=== PATIENT | female | born 1955 | race Caucasian/White ===

== ENCOUNTER 2025-06-02 13:48 | Inpatient (IN) | payer OTHER ==
[~2025-06-02] VITALS: Ht 154.9 cm; Wt 54.9 kg
[2025-06-02 13:52] VITALS: O2SAT 96
[2025-06-02 14:32] LABS: BASOPHILS % 0.9 % (0.0-2.0); EOSINOPHILS % 1.2 % (0.0-5.0); HEMATOCRIT. 23.2 % (36.0-48.0); HEMOGLOBIN. 7.6 g/dL (12.0-16.0); LYMPHOCYTES % 14.4 % (20.0-50.0); MEAN PLATELET VOLUME 9.0 fl (7.4-10.4); MONOCYTES % 5.5 % (2.0-8.0); NEUTROPHILS % 78.0 % (40.0-76.0); PLATELET 235 x1000/uL (130-400); RED BLOOD CELL COUNT 2.53 mill/uL (4.2-5.4); RED CELL DISTRIBUTION WIDTH 17.9 % (11.6-14.6)
[2025-06-02] MEDS: DEXTROSE 50% WATER 50ML SYRINGE IV ONE (14:35)
[2025-06-02] MEDS: DEXT 5%/0.45% NACL 1000ML 1,000 ML IV ONE (14:49)
[2025-06-02 14:54] LABS: CREATININE 1.2 mg/dL (0.6-1.0)
[2025-06-02 14:55] LABS: UREA NITROGEN BLOOD 28 mg/dL (9-23)
[2025-06-02 14:56] LABS: ASPARTATE AMINOTRANSFERASE 63 IU/L (<34); BILIRUBIN DIRECT < 0.1 mg/dL (<=3.0)
[2025-06-02 14:57] LABS: BILIRUBIN TOTAL 0.3 mg/dL (0.1-1.0); PROTEIN TOTAL 5.1 g/dL (6.0-8.3)
[2025-06-02 16:00] VITALS: BP 153/58; PULSE 58; RESP 18; TEMP 36.9; O2SAT 100
[2025-06-02] MEDS: INSULIN LISPRO 100 UNITS/ML SUBCUT SCH (18:12)
[2025-06-02] MEDS ORDERED: ACETAMINOPHEN 325MG TABLET PO PRN ×2 (18:15)
[2025-06-02] MEDS ORDERED: ONDANSETRON HCL 4MG/2ML INJ IV PRN (18:15)
[2025-06-02] MEDS ORDERED: IPRATROPIUM/ALBUTEROL 0.5-3(2.5)MG/3ML NEB HHN PRN (18:15)
[2025-06-02] MEDS ORDERED: DEXTROSE 50% WATER 50ML SYRINGE IV PRN (18:15)
[2025-06-02] MEDS ORDERED: DOCUSATE SODIUM 100MG CAPSULE PO PRN (18:15)
[2025-06-02 18:38] VITALS: BP 153/58; PULSE 58; RESP 18; TEMP 36.974
[2025-06-02 20:00] VITALS: BP 149/56; PULSE 56; RESP 19; TEMP 36.4; O2SAT 98
[2025-06-02] MEDS: BLOOD SUGAR DIAGNOSTIC STRIP TEST SCH (21:03)
[2025-06-03 00:08] VITALS: BP 112/68; PULSE 60; RESP 17; TEMP 36.4; O2SAT 97
[2025-06-03 04:40] VITALS: BP 139/58; PULSE 61; RESP 17; TEMP 36.6; O2SAT 98
[2025-06-03 07:06] LABS: BASOPHILS % 0.3 % (0.0-2.0); EOSINOPHILS % 0.8 % (0.0-5.0); HEMATOCRIT. 25.7 % (36.0-48.0); HEMOGLOBIN. 8.6 g/dL (12.0-16.0); LYMPHOCYTES % 7.1 % (20.0-50.0); MEAN PLATELET VOLUME 9.1 fl (7.4-10.4); MONOCYTES % 5.2 % (2.0-8.0); NEUTROPHILS % 86.6 % (40.0-76.0); PLATELET 272 x1000/uL (130-400); RED BLOOD CELL COUNT 2.84 mill/uL (4.2-5.4); RED CELL DISTRIBUTION WIDTH 17.8 % (11.6-14.6)
[2025-06-03 07:15] LABS: CREATININE 1.3 mg/dL (0.6-1.0)
[2025-06-03 07:16] LABS: UREA NITROGEN BLOOD 37.0 mg/dL (9-23)
[2025-06-03 08:00] VITALS: BP 164/72; PULSE 63; RESP 18; TEMP 36.3; O2SAT 99
[2025-06-03] MEDS: SODIUM ZIRCONIUM CYCLOSILICATE 10GM/PACKET PO NR (09:30)
[2025-06-03] MEDS: SODIUM BICARBONATE 8.4% 50MEQ/50ML SYR IV NR (10:09)
[2025-06-03] MEDS: DEXTROSE 50% WATER 50ML SYRINGE IV NR (10:09)
[2025-06-03] MEDS: INSULIN REGULAR (HUMULIN R) 1000UNITS/10ML VIAL IV NR (10:10)
[2025-06-03 12:00] VITALS: BP_SYST 140; BP_DIAS 74; BP_DIAS 86; PULSE 73; PULSE 76; RESP 20; TEMP 36.4; TEMP 36.6; O2SAT 100; O2SAT 99
[2025-06-03 16:00] VITALS: BP 137/74; PULSE 70; RESP 18; TEMP 36.7; O2SAT 97
[2025-06-03] MEDS: ENOXAPARIN 30MG/0.3ML SYR SUBCUT SCH (16:54)
[2025-06-03 22:26] LABS: CLARITY URINE CLEAR (CLEAR); COLOR URINE YELLOW (YELLOW); GLUCOSE URINE TRACE (NEGATIVE); KETONES URINE NEGATIVE (NEGATIVE); LEUKOCYTE ESTERASE URINE TRACE (NEGATIVE); NITRITE URINE POSITIVE (NEGATIVE); OCCULT BLOOD URINE 1+ (NEGATIVE); PH URINE 5.5 (4.5-8.0); PROTEIN URINE 3+ (NEGATIVE); SPECIFIC GRAVITY URINE 1.016 (1.005-1.030); UROBILINOGEN URINE 0.2 E.U./dL (0.2-1.0)
[2025-06-03 22:59] LABS: BACTERIA URINE 2+; SQUAMOUS EPITHELIAL CELL URINE 1+ /lpf (RARE/1+); WBC URINE 0-2 /hpf (0-2)
[2025-06-04] VITALS (7 sets, daily range): BP systolic 160–177; BP diastolic 59–76; PULSE 70–74; RESP 15–20; TEMP 36.6–37.1; O2SAT 95–100
[2025-06-04 06:53] LABS: CREATININE 1.2 mg/dL (0.6-1.0); UREA NITROGEN BLOOD 24.0 mg/dL (9-23)
[2025-06-04] MEDS: AMLODIPINE 10MG TABLET PO SCH (14:56)
[2025-06-04] MEDS: CLONIDINE 0.1MG TABLET PO PRN (14:56)
[2025-06-04 16:50] LABS: BASOPHILS % 1.1 % (0.0-2.0); EOSINOPHILS % 3.6 % (0.0-5.0); HEMATOCRIT. 25.4 % (36.0-48.0); HEMOGLOBIN. 8.4 g/dL (12.0-16.0); LYMPHOCYTES % 18.7 % (20.0-50.0); MEAN PLATELET VOLUME 9.2 fl (7.4-10.4); MONOCYTES % 9.9 % (2.0-8.0); NEUTROPHILS % 66.7 % (40.0-76.0); PLATELET 279 x1000/uL (130-400); RED BLOOD CELL COUNT 2.80 mill/uL (4.2-5.4); RED CELL DISTRIBUTION WIDTH 17.9 % (11.6-14.6)
[2025-06-04] MEDS ORDERED: HYDR50TA40 MT (17:15)
[2025-06-04] MEDS: HYDRALAZINE HCL 50MG TABLET PO SCH (17:44)
[2025-06-04] MEDS ORDERED: HYDRALAZINE 20MG/ML VIAL IV PRN (19:45)
[2025-06-05] VITALS: BP 145/58; PULSE 76; RESP 20; TEMP 36.7; O2SAT 97
[2025-06-05 03:59] VITALS: BP 138/69; PULSE 64; RESP 20; TEMP 36.4; O2SAT 97
[2025-06-05 06:44] VITALS: BP 138/69; PULSE 75; RESP 18; TEMP 98
[2025-06-05] MEDS ORDERED: AMLO5TAB88 MT (07:41)
[2025-06-05 08:29] VITALS: BP 161/66; PULSE 65; RESP 20; TEMP 36.6; O2SAT 100
[2025-06-05 11:20] VITALS: BP 142/56
[2025-06-05] MEDS: FUROSEMIDE 40MG/4ML VIAL IVP SCH (12:00)
[2025-06-05 12:38] VITALS: BP 144/58; PULSE 64; RESP 20; TEMP 36.6; O2SAT 98
== END 2025-06-05 14:30 | disposition home or self-care (01) | DRG 639 ==
LOC: ER 14:55 → EDBEDREQ 16:19 → ENRESERV 18:56 → 7WST 20:36
PROVIDERS: ADMIT Internal Medicine; ATTEND Internal Medicine
DX: E11.649 Type 2 diabetes mellitus with hypoglycemia without coma (principal); N17.9 Acute kidney failure, unspecified; D64.9 Anemia, unspecified; E87.5 Hyperkalemia; E11.22 Type 2 diabetes mellitus with diabetic chronic kidney disease; N18.9 Chronic kidney disease, unspecified; I12.9 Hypertensive chronic kidney disease with stage 1 through stage 4 chronic kidney disease, or unspecified chronic kidney disease; Z79.84 Long term (current) use of oral hypoglycemic drugs; Z88.0 Allergy status to penicillin
CPT/HCPCS: 36415; 76770; 80048; 80076; 81003; 82010; 82962; 83735; 84132; 85025; 93005; 99291; 99292; J1650; J1815; J3490

== ENCOUNTER 2025-07-08 17:30 | Inpatient (IN) | payer OTHER ==
[~2025-07-08] VITALS: Ht 165.1 cm; Wt 85.8 kg
[~2025-07-08 17:30] MED LIST: AMLO5TAB88 MT; HYDR50TA40 MT
[2025-07-08] MEDS: SODIUM CHLORIDE 0.9% 250 ML IV ONE (18:35)
[2025-07-08] MEDS: DOPAMINE 400MG/250ML PREMIX 250 ML IV SCH (18:46)
[2025-07-08] MEDS: CEFTRIAXONE 1GM/50ML 50 ML IV ONE (19:20)
[2025-07-08 19:25] LABS: HEMATOCRIT. 29.4 % (36.0-48.0); HEMOGLOBIN. 9.7 g/dL (12.0-16.0); MEAN PLATELET VOLUME 10.8 fl (7.4-10.4); PLATELET 212 x1000/uL (130-400); RED BLOOD CELL COUNT 3.26 mill/uL (4.2-5.4); RED CELL DISTRIBUTION WIDTH 17.9 % (11.6-14.6)
[2025-07-08 19:36] LABS: INR 0.9
[2025-07-08 19:39] LABS: CREATININE 1.4 mg/dL (0.6-1.0); UREA NITROGEN BLOOD 28 mg/dL (9-23)
[2025-07-08 19:40] LABS: PROTEIN TOTAL 6.5 g/dL (6.0-8.3)
[2025-07-08 19:41] LABS: ASPARTATE AMINOTRANSFERASE 61 IU/L (<34); BILIRUBIN DIRECT 0.1 mg/dL (<=3.0)
[2025-07-08 19:42] LABS: BILIRUBIN TOTAL 0.7 mg/dL (0.1-1.0)
[2025-07-08 19:45] LABS: T4 FREE 1.03 ng/dL (0.89-1.76)
[2025-07-08 19:52] LABS: LYMPHOCYTES % MANUAL 8.0 % (20.0-60.0); MONOCYTES % MANUAL 3.0 % (2.0-8.0); NEUTROPHILS % MANUAL 89.0 % (45.0-75.0); NUCLEATED RED BLOOD CELLS 3 /100 WBC; PLATELET ESTIMATE NORMAL
[2025-07-08] MEDS ORDERED: ALBUTEROL (0.083%) 2.5MG/3ML NEB HHN ONE (20:00)
[2025-07-08 20:27] LABS: INFLUENZA TYPE A Presumptive Negative (Pres. Neg.); INFLUENZA TYPE B Presumptive Negative (Pres. Neg.)
[2025-07-08 20:28] LABS: RESPIRATORY SYNCYTIAL VIRUS Not Detected (Not Detectd)
[2025-07-08] MEDS: CALCIUM GLUCONATE 1GM PREMIX 50 ML IV ONE (20:36)
[2025-07-08] MEDS: DEXTROSE 50% WATER 50ML SYRINGE IV ONE (20:45)
[2025-07-08] MEDS: INSULIN REGULAR (HUMULIN R) 1000UNITS/10ML VIAL IV ONE (20:54)
[2025-07-08] MEDS: FUROSEMIDE 100MG/10ML VIAL IVP ONE (21:34)
[2025-07-08 21:49] VITALS: PULSE 66; RESP 10; O2SAT 100
[2025-07-08] MEDS: ALBUTEROL (0.083%) 2.5MG/3ML NEB HHN NR (21:55)
[2025-07-08 22:48] LABS: TROPONIN I HIGH SENSITIVITY 23 ng/L (3.0-34)
[2025-07-08 23:53] LABS: CLARITY URINE CLEAR (CLEAR); COLOR URINE YELLOW (YELLOW); GLUCOSE URINE TRACE (NEGATIVE); KETONES URINE NEGATIVE (NEGATIVE); LEUKOCYTE ESTERASE URINE NEGATIVE (NEGATIVE); NITRITE URINE NEGATIVE (NEGATIVE); OCCULT BLOOD URINE NEGATIVE (NEGATIVE); PH URINE 5.5 (4.5-8.0); PROTEIN URINE 3+ (NEGATIVE); SPECIFIC GRAVITY URINE 1.014 (1.005-1.030); UROBILINOGEN URINE 0.2 E.U./dL (0.2-1.0)
[2025-07-09] VITALS (73 sets, daily range): BP systolic 84–160; BP diastolic 35–124; PULSE 38–75; RESP 0–28; TEMP 35.0836–37.1; O2SAT 91–100
[2025-07-09] MEDS ORDERED: HYDROCORTISONE SOD SUCCINATE 100 MG/2 ML VIAL IV ONE (00:30)
[2025-07-09] MEDS ORDERED: NOREPINEPHRINE 8MG/250ML PMX 250 ML IV ONE (00:45)
[2025-07-09] MEDS: LEVOTHYROXINE SODIUM 200MCG TABLET PO ONE (00:57)
[2025-07-09 00:59] LABS: BG DEOXYHEMOGLOBIN 18.1 % (0.0-5.0)
[2025-07-09 01:08] LABS: RBC URINE 0-2 /hpf (0-2); WBC URINE 0-2 /hpf (0-2)
[2025-07-09 01:10] LABS: BACTERIA URINE NONE SEEN; SQUAMOUS EPITHELIAL CELL URINE FEW /lpf (RARE/1+)
[2025-07-09] MEDS: HYDROCORTISONE SOD SUCCINATE 100 MG/2 ML VIAL IV ONE (01:21)
[2025-07-09] MEDS: LEVOTHYROXINE SODIUM 100 MCG/ VIAL IV SCH (01:21)
[2025-07-09] MEDS: PIPERACILLIN/TAZO 3.375G/50ML 50 ML IV SCH (01:34)
[2025-07-09] MEDS: ALBUMIN HUMAN 25GM/100ML (25%) IV NR (01:43)
[2025-07-09] MEDS: VANCOMYCIN 1.5GM/250ML 250 ML IV SCH (03:34)
[2025-07-09] MEDS ORDERED: ONDANSETRON HCL 4MG/2ML INJ IV PRN (04:15)
[2025-07-09] MEDS ORDERED: BLOOD SUGAR DIAGNOSTIC STRIP TEST SCH (04:15)
[2025-07-09] MEDS ORDERED: NOREPINEPHRINE 8MG/250ML PMX 250 ML IV PRN (04:30)
[2025-07-09] MEDS: BLOOD SUGAR DIAGNOSTIC STRIP TEST SCH (06:15)
[2025-07-09] MEDS: INSULIN LISPRO 100 UNITS/ML SUBCUT SCH (06:15)
[2025-07-09] MEDS: HYDROCORTISONE SOD SUCCINATE 100 MG/2 ML VIAL IV SCH (06:37)
[2025-07-09] MEDS: DEXT 5%/0.9% NACL 1,000 ML IV SCH (06:37)
[2025-07-09] MEDS: ATROPINE SULFATE 1MG/10ML SYR IV SCH (08:00)
[2025-07-09] MEDS: PANTOPRAZOLE SODIUM 40 MG/VIAL IV SCH (08:33)
[2025-07-09] MEDS: ENOXAPARIN 40MG/0.4ML SYR SUBCUT SCH (08:33)
[2025-07-09] MEDS ORDERED: ENOXAPARIN 40MG/0.4ML SYR SUBCUT SCH (09:15)
[2025-07-09] MEDS: DOPAMINE 400MG/250ML PREMIX 250 ML IV PRN (10:15)
[2025-07-09] MEDS: SODIUM CHLORIDE 0.9% 1,000 ML IV ONE (10:37)
[2025-07-09 13:31] LABS: TROPONIN I HIGH SENSITIVITY 44 ng/L (3.0-34)
[2025-07-09 15:16] LABS: BG BASE EXCESS -2.4 mmol/L (-2.0-3.0); BG CARBOXYHEMOGLOBIN 1.3 % (0.5-1.5); BG DEOXYHEMOGLOBIN 4.6 % (0.0-5.0); BG FLOW(L/min) 3.00 L/min; BG FRACTION INSPIRED OXYGEN 32; BG HCO3 ACT 22.1 mmol/L (21.0-28.0); BG METHEMOGLOBIN 0.0 % (0.5-1.5); BG OXYGEN SATURATION 95.3 % (94.0-98.0); BG OXYHEMOGLOBIN 94.1 % (94.0-98.0); BG PCO2 36.7 mmHg (32.0-45.0); BG PH 7.397 (7.350-7.450); BG PO2 72.5 mmHg (83.0-108.0); BG SAMPLE SITE RIGHT RADIAL; BG TOTAL HEMOGLOBIN 8.9 g/dL (12.0-16.0); BG VENT MODE NASAL CANNULA
[2025-07-09 19:58] LABS: CREATININE 1.6 mg/dL (0.6-1.0)
[2025-07-09 19:59] LABS: UREA NITROGEN BLOOD 32 mg/dL (9-23)
[2025-07-09 20:01] LABS: PHOSPHORUS 3.4 mg/dL (2.5-4.9)
[2025-07-09 20:31] LABS: BG BASE EXCESS -4.9 mmol/L (-2.0-3.0); BG CARBOXYHEMOGLOBIN 0.8 % (0.5-1.5); BG DEOXYHEMOGLOBIN 11.1 % (0.0-5.0); BG FLOW(L/min) 5.00 L/min; BG FRACTION INSPIRED OXYGEN 40; BG HCO3 ACT 20.6 mmol/L (21.0-28.0); BG METHEMOGLOBIN 0.2 % (0.5-1.5); BG OXYGEN SATURATION 88.8 % (94.0-98.0); BG OXYHEMOGLOBIN 87.9 % (94.0-98.0); BG PCO2 39.7 mmHg (32.0-45.0); BG PH 7.332 (7.350-7.450); BG PO2 55.0 mmHg (83.0-108.0); BG SAMPLE SITE RIGHT BRACHIAL; BG TOTAL HEMOGLOBIN 9.4 g/dL (12.0-16.0); BG VENT MODE NASAL CANNULA
[2025-07-09] MEDS: APIXABAN 5 MG TABLET PO SCH (21:00)
[2025-07-09] MEDS: FUROSEMIDE 40MG/4ML VIAL IVP NR (21:36)
[2025-07-09] MEDS: DEXTROSE 5% WATER 1,000 ML IV SCH (21:37)
[2025-07-10] VITALS (100 sets, daily range): BP systolic 100–154; BP diastolic 51–106; PULSE 47–76; RESP 0–26; TEMP 35.7–37.6; O2SAT 90–100
[2025-07-10 06:08] LABS: CREATININE 1.8 mg/dL (0.6-1.0); UREA NITROGEN BLOOD 39.0 mg/dL (9-23)
[2025-07-10] MEDS: DEXTROSE 50% WATER 50ML SYRINGE IV PRN (06:09)
[2025-07-10 06:22] LABS: HEMATOCRIT. 23.4 % (36.0-48.0); HEMOGLOBIN. 7.6 g/dL (12.0-16.0); MEAN PLATELET VOLUME 10.3 fl (7.4-10.4); PLATELET 130 x1000/uL (130-400); RED BLOOD CELL COUNT 2.57 mill/uL (4.2-5.4); RED CELL DISTRIBUTION WIDTH 18.5 % (11.6-14.6)
[2025-07-10] MEDS: LEVOTHYROXINE SODIUM 100 MCG/ VIAL IV SCH (08:32)
[2025-07-10] MEDS ORDERED: LIDOCAINE HCL 1% 10 MG/ML 10ML VIAL ONE (09:24)
[2025-07-10] MEDS: FUROSEMIDE 40MG/4ML VIAL IVP SCH (09:26)
[2025-07-10] MEDS: SODIUM ZIRCONIUM CYCLOSILICATE 10GM/PACKET PO SCH (12:21)
[2025-07-10 14:21] LABS: BAND% 10.0 % (1.0-6.0); LYMPHOCYTES % MANUAL 1.0 % (20.0-60.0); MONOCYTES % MANUAL 2.0 % (2.0-8.0); NEUTROPHILS % MANUAL 87.0 % (45.0-75.0); PLATELET ESTIMATE NORMAL
[2025-07-11] VITALS (62 sets, daily range): BP systolic 104–146; BP diastolic 44–98; PULSE 46–66; RESP 0–24; TEMP 35.9–36.6; O2SAT 90–100
[2025-07-11] MEDS ORDERED: AZTREONAM 500 MG in DEXTROSE 5% WATER 50 ML IV SCH (03:45)
[2025-07-11 05:58] LABS: CREATININE 2.1 mg/dL (0.6-1.0); UREA NITROGEN BLOOD 43.0 mg/dL (9-23)
[2025-07-11 06:02] LABS: T4 FREE 1.19 ng/dL (0.89-1.76)
[2025-07-11 06:12] LABS: HEMATOCRIT. 21.6 % (36.0-48.0); MEAN PLATELET VOLUME 10.2 fl (7.4-10.4); PLATELET 104 x1000/uL (130-400); RED BLOOD CELL COUNT 2.41 mill/uL (4.2-5.4); RED CELL DISTRIBUTION WIDTH 18.3 % (11.6-14.6)
[2025-07-11 06:31] LABS: HEMOGLOBIN. 7.0 g/dL (12.0-16.0)
[2025-07-11] MEDS: PIPERACILLIN/TAZO 3.375G/50ML IV SCH (07:05)
[2025-07-11] MEDS: VANCOMYCIN 1GM/200ML PMX (BAXTER) IV NR (07:05)
[2025-07-11] MEDS ORDERED: ATROPINE SULFATE 1MG/ML VIAL IV PRN (09:30)
[2025-07-11] MEDS ORDERED: ATROPINE SULFATE 1MG/10ML SYR IV PRN (09:33)
[2025-07-11 10:36] LABS: BAND% 19.0 % (1.0-6.0); LYMPHOCYTES % MANUAL 1.0 % (20.0-60.0); MONOCYTES % MANUAL 2.0 % (2.0-8.0); NEUTROPHILS % MANUAL 78.0 % (45.0-75.0); NUCLEATED RED BLOOD CELLS 1 /100 WBC
[2025-07-11 10:37] LABS: PLATELET ESTIMATE DECREASED
[2025-07-11] MEDS: FERROUS SULFATE 325MG TABLET PO SCH (17:20)
[2025-07-12] VITALS (15 sets, daily range): BP systolic 89–132; BP diastolic 41–90; PULSE 39–50; RESP 0–19; TEMP 36.1–36.9; O2SAT 93–100
[2025-07-12 07:22] LABS: HEMATOCRIT. 24.8 % (36.0-48.0); HEMOGLOBIN. 8.1 g/dL (12.0-16.0); MEAN PLATELET VOLUME 10.6 fl (7.4-10.4); PLATELET 109 x1000/uL (130-400); RED BLOOD CELL COUNT 2.75 mill/uL (4.2-5.4); RED CELL DISTRIBUTION WIDTH 18.4 % (11.6-14.6)
[2025-07-12 07:33] LABS: CREATININE 2.2 mg/dL (0.6-1.0); UREA NITROGEN BLOOD 40 mg/dL (9-23)
[2025-07-12] MEDS ORDERED: IPRATROPIUM/ALBUTEROL 0.5-3(2.5)MG/3ML NEB HHN SCH (11:30)
[2025-07-12 13:30] LABS: FOLIC ACID (FOLATE) SERUM 4.53 ng/mL (>5.38); VITAMIN B12 SERUM 1774 pg/mL (211-911)
[2025-07-12] MEDS: ACETYLCYSTEINE 200MG/ML 20% VIAL 4ML INH SCH (16:13)
[2025-07-12] MEDS: IPRATROPIUM/ALBUTEROL 0.5-3(2.5)MG/3ML NEB HHN SCH (16:14)
[2025-07-12 19:03] LABS: BAND% 4.0 % (1.0-6.0); LYMPHOCYTES % MANUAL 1.0 % (20.0-60.0); MONOCYTES % MANUAL 4.0 % (2.0-8.0); NEUTROPHILS % MANUAL 91.0 % (45.0-75.0); NUCLEATED RED BLOOD CELLS 1 /100 WBC; PLATELET ESTIMATE DECREASED
[2025-07-13] MEDS ORDERED: LEVOTHYROXINE SODIUM 137MCG TABLET PO SCH (07:30)
[2025-07-13] MEDS ORDERED: FUROSEMIDE 40MG/4ML VIAL IVP SCH (09:00)
[2025-07-13] MEDS ORDERED: FAMOTIDINE 20MG/2ML VIAL IV SCH (09:00)
== END 2025-07-12 23:16 | disposition short-term general hospital (02) | DRG 291 ==
LOC: ER 17:30 → MICUSO 07-09 00:41 → EDBEDREQ 07-09 01:06 → EDBEDREQTM 07-09 01:06 → EDBEDREQDT 07-09 01:06 → ENRESERV 07-09 01:38 → 5EST 07-11 15:30
PROVIDERS: ADMIT Student in an Organized Health Care Education/Training Program; ATTEND Student in an Organized Health Care Education/Training Program
PROC: 5A09357 Assistance with Respiratory Ventilation, Less than 24 Consecutive Hours, Continuous Positive Airway Pressure (ICD-10-PCS; principal; 2025-07-10)
DX: I11.0 Hypertensive heart disease with heart failure (principal); E03.5 Myxedema coma; J96.01 Acute respiratory failure with hypoxia; G92.8 Other toxic encephalopathy; R57.0 Cardiogenic shock; N17.0 Acute kidney failure with tubular necrosis; I50.33 Acute on chronic diastolic (congestive) heart failure; D64.9 Anemia, unspecified; E11.649 Type 2 diabetes mellitus with hypoglycemia without coma; N18.9 Chronic kidney disease, unspecified; E87.1 Hypo-osmolality and hyponatremia; L89.156 Pressure-induced deep tissue damage of sacral region; L89.626 Pressure-induced deep tissue damage of left heel; R23.4 Changes in skin texture; I48.91 Unspecified atrial fibrillation; E87.5 Hyperkalemia; L89.616 Pressure-induced deep tissue damage of right heel; Z78.1 Physical restraint status; Z88.0 Allergy status to penicillin; Z74.01 Bed confinement status
CPT/HCPCS: 36415; 36573; 36600; 71045; 76770; 80048; 80076; 81003; 82375; 82533; 82550; 82607; 82728; 82746; 82803; 82805; 82962; 83036; 83540; 83550; 83605; 83735; 83880; 84100; 84132; 84145; 84439; 84443; 84484; 85025; 87420; 87426; 87804; 92610; 93005; 93306; 93970; 94070; 94640; 94660; 94664; 96361; 96365; 98960; 99291; 99292; A4606; C1725; J0612; J0696; J1265; J1650; J1720; J1815; J1938; J2003; J2470; J2543; J3373; J3490; J7042; J7050; J7070; J7608; P9047